=== PATIENT | female | born 2000 | race Caucasian/White ===

== ENCOUNTER 2024-02-26 11:49 | Outpatient (CLI) | payer OTHER | END 2024-02-26 11:57 | disposition home or self-care (01) | LOC: RAD 11:49 | DX: M99.02 Segmental and somatic dysfunction of thoracic region (principal); M99.03 Segmental and somatic dysfunction of lumbar region; M99.04 Segmental and somatic dysfunction of sacral region; M99.05 Segmental and somatic dysfunction of pelvic region ==